=== PATIENT | female | born 1980 | race African-American/Black ===

== ENCOUNTER 2016-07-06 16:25 | Emergency (ER) | payer BC, MEDICAID ==
[~2016-07-06] VITALS: Ht 160 cm; Wt 66.0 kg
[2016-07-06 16:57] VITALS: BP 105/65
[2016-07-06] MEDS ORDERED: ACETAMINOPHEN 325MG TABLET PO ONE (20:00)
== END 2016-07-06 20:20 | disposition home or self-care (01) ==
LOC: ER 18:35
DX: H11.32 Conjunctival hemorrhage, left eye (principal); F12.10 Cannabis abuse, uncomplicated; Z88.0 Allergy status to penicillin; Z88.6 Allergy status to analgesic agent
CPT/HCPCS: 99282

== ENCOUNTER 2018-02-09 09:23 | Emergency (ER) | payer BC, MEDICAID ==
[~2018-02-09] VITALS: Ht 162.6 cm; Wt 68.0 kg
[2018-02-09] MEDS ORDERED: ONDANSETRON HCL 4MG/2ML INJ IV STA (09:38)
[2018-02-09] MEDS ORDERED: FAMOTIDINE 20MG/2ML VIAL IV STA (09:38)
[2018-02-09] MEDS ORDERED: SODIUM CHLORIDE 0.9% 1,000 ML IV ONE (09:38)
[2018-02-09 10:05] LABS: HEMATOCRIT. 37.3 % (36.0-48.0); HEMOGLOBIN. 12.8 g/dL (12.0-16.0); MEAN CORPUSCULAR VOLUME 92.9 fL (81.0-99.0); MEAN PLATELET VOLUME 9.5 fl (7.4-10.4); PLATELET 214 x1000/uL (130-400); RED BLOOD CELL COUNT 4.02 mill/uL (4.2-5.4); RED CELL DISTRIBUTION WIDTH 12.8 % (11.6-14.6)
[2018-02-09 10:13] LABS: INR 1.1; PROTHROMBIN TIME 10.8 sec (9.1-11.1)
[2018-02-09 10:17] LABS: HCG SCREEN NEGATIVE
[2018-02-09 10:23] LABS: PLATELET ESTIMATE NORMAL
[2018-02-09 10:34] LABS: CHLORIDE 106 mEq/L (98-107)
[2018-02-09 10:50] LABS: CLARITY URINE CLEAR (CLEAR); COLOR URINE YELLOW (YELLOW); KETONES URINE 1+ (NEGATIVE); LEUKOCYTE ESTERASE URINE NEGATIVE (NEGATIVE); NITRITE URINE NEGATIVE (NEGATIVE); OCCULT BLOOD URINE NEGATIVE (NEGATIVE); PH URINE 5.5 (4.5-8.0); PROTEIN URINE NEGATIVE (NEGATIVE); UROBILINOGEN URINE 0.2 E.U./dL (0.2-1.0)
[2018-02-09 10:52] VITALS: BP 114/84
== END 2018-02-09 11:35 | disposition home or self-care (01) ==
LOC: ER 10:26
DX: R10.13 Epigastric pain (principal); R03.0 Elevated blood-pressure reading, without diagnosis of hypertension
CPT/HCPCS: 36415; 76705; 80053; 81003; 81025; 83690; 84703; 85025; 85610; 96374; 96375; 99285; J2405; J3490; J7030

== ENCOUNTER 2018-05-28 14:05 | Emergency (ER) | payer MEDICAID, OTHER ==
[~2018-05-28] VITALS: Ht 162.6 cm; Wt 72.0 kg
[2018-05-28] MEDS ORDERED: METHOCARBAMOL 500MG TABLET PO ONE (16:15)
[2018-05-28] MEDS ORDERED: TRAMADOL 50MG TABLET PO ONE (16:15)
[2018-05-28 16:38] VITALS: BP 110/60
== END 2018-05-28 16:40 | disposition home or self-care (01) ==
LOC: ER 14:05
DX: S16.1XXA Strain of muscle, fascia and tendon at neck level, initial encounter (principal); R51 Headache; F12.10 Cannabis abuse, uncomplicated; Z88.0 Allergy status to penicillin; Z88.1 Allergy status to other antibiotic agents; Z88.6 Allergy status to analgesic agent; V49.49XA Driver injured in collision with other motor vehicles in traffic accident, initial encounter; Y93.89 Activity, other specified; Y92.89 Other specified places as the place of occurrence of the external cause; Y99.8 Other external cause status
CPT/HCPCS: 99283

== ENCOUNTER 2021-09-17 22:00 | Emergency (ER) | payer MEDICAID, OTHER ==
[~2021-09-17] VITALS: Ht 162.6 cm; Wt 74.4 kg
[2021-09-17 22:37] LABS: CLARITY URINE CLOUDY (CLEAR); COLOR URINE YELLOW (YELLOW); KETONES URINE TRACE (NEGATIVE); LEUKOCYTE ESTERASE URINE TRACE (NEGATIVE); NITRITE URINE NEGATIVE (NEGATIVE); OCCULT BLOOD URINE NEGATIVE (NEGATIVE); PH URINE 7.5 (4.5-8.0); PROTEIN URINE 1+ (NEGATIVE)
[2021-09-17] MEDS ORDERED: ACETAMINOPHEN 325MG TABLET PO ONE (23:15)
[2021-09-17 23:35] LABS: BASOPHILS % 0.7 % (0.0-2.0); EOSINOPHILS % 1.4 % (0.0-5.0); HEMATOCRIT. 32.7 % (36.0-48.0); HEMOGLOBIN. 11.3 g/dL (12.0-16.0); LYMPHOCYTES % 25.1 % (20.0-50.0); MEAN CORPUSCULAR HEMOGLOBIN 30.3 pg (28.0-32.0); MEAN CORPUSCULAR VOLUME 87.9 fL (81.0-99.0); MEAN PLATELET VOLUME 9.8 fl (7.4-10.4); NEUTROPHILS % 64.8 % (40.0-76.0); PLATELET 177 x1000/uL (130-400); RED BLOOD CELL COUNT 3.72 mill/uL (4.2-5.4); RED CELL DISTRIBUTION WIDTH 19.3 % (11.6-14.6)
[2021-09-17 23:43] LABS: CHLORIDE 109 mEq/L (98-107)
[2021-09-18 00:06] LABS: B-HCG QUANTITATIVE 107523 mIU/mL (<3)
[2021-09-18 06:05] VITALS: BP 135/82
== END 2021-09-18 06:07 | disposition home or self-care (01) ==
LOC: ER 22:00
DX: O26.891 Other specified pregnancy related conditions, first trimester (principal); Z3A.12 12 weeks gestation of pregnancy; F12.10 Cannabis abuse, uncomplicated; Z88.0 Allergy status to penicillin
CPT/HCPCS: 36415; 76801; 76857; 80053; 81003; 81025; 84702; 85025; 86850; 86900; 99285

== ENCOUNTER 2021-12-09 00:52 | Observation (INO) | payer MEDICAID ==
[~2021-12-09] VITALS: Ht 162.6 cm; Wt 74.4 kg
[2021-12-09 02:07] LABS: CLARITY URINE CLEAR (CLEAR); COLOR URINE YELLOW (YELLOW); KETONES URINE 1+ (NEGATIVE); LEUKOCYTE ESTERASE URINE NEGATIVE (NEGATIVE); NITRITE URINE NEGATIVE (NEGATIVE); OCCULT BLOOD URINE NEGATIVE (NEGATIVE); PROTEIN URINE NEGATIVE (NEGATIVE); SPECIFIC GRAVITY URINE 1.022 (1.005-1.030); UROBILINOGEN URINE 0.2 E.U./dL (0.2-1.0)
[2021-12-09] MEDS ORDERED: FERR325T6 PO (02:32)
[2021-12-09] MEDS ORDERED: PREN1TAB78 PO (02:32)
[2021-12-09] MEDS ORDERED: ACETAMINOPHEN 325MG TABLET PO PRN (02:45)
== END 2021-12-09 03:02 | disposition home or self-care (01) ==
LOC: L&D 00:52 → 8 EST LDRP 01:32
PROVIDERS: ADMIT Obstetrics & Gynecology; ATTEND Obstetrics & Gynecology
DX: O62.9 Abnormality of forces of labor, unspecified (principal); O26.893 Other specified pregnancy related conditions, third trimester; R10.30 Lower abdominal pain, unspecified; N89.8 Other specified noninflammatory disorders of vagina; O34.13 Maternal care for benign tumor of corpus uteri, third trimester; Z3A.36 36 weeks gestation of pregnancy
CPT/HCPCS: 59025; 76805; 81003; G0378; 99281

== ENCOUNTER 2023-08-29 15:23 | Emergency (ER) | payer MEDICAID, OTHER ==
[~2023-08-29] VITALS: Ht 160 cm; Wt 72.6 kg
[~2023-08-29 15:23] MED LIST: FERR325T6 PO; PREN1TAB78 PO
[2023-08-29 15:49] VITALS: BP 88/55; PULSE 82; RESP 16; TEMP 98.7; O2SAT 99
[2023-08-29 16:37] LABS: BASOPHILS % 0.4 % (0.0-2.0); EOSINOPHILS % 0.8 % (0.0-5.0); HEMATOCRIT. 36.9 % (36.0-48.0); HEMOGLOBIN. 12.8 g/dL (12.0-16.0); LYMPHOCYTES % 20.9 % (20.0-50.0); MEAN CORPUSCULAR HEMOGLOBIN 33.3 pg (28.0-32.0); MEAN CORPUSCULAR HGB CONC 34.7 g/dL (31.0-37.0); MONOCYTES % 7.6 % (2.0-8.0); NEUTROPHILS % 70.3 % (40.0-76.0); PLATELET 190 x1000/uL (130-400); RED BLOOD CELL COUNT 3.85 mill/uL (4.2-5.4); RED CELL DISTRIBUTION WIDTH 13.2 % (11.6-14.6); WHITE BLOOD COUNT 6.5 x1000/uL (4.5-11.0)
[2023-08-29 16:40] LABS: CHLORIDE 106 mEq/L (98-107); POTASSIUM 4.5 mEq/L (3.5-5.1); SODIUM 138 mEq/L (136-145)
[2023-08-29 16:41] LABS: CARBON DIOXIDE 26 mEq/L (21-32)
[2023-08-29 16:41] LABS: CLARITY URINE CLEAR (CLEAR); COLOR URINE YELLOW (YELLOW); GLUCOSE URINE NEGATIVE (NEGATIVE); KETONES URINE NEGATIVE (NEGATIVE); LEUKOCYTE ESTERASE URINE NEGATIVE (NEGATIVE); NITRITE URINE NEGATIVE (NEGATIVE); OCCULT BLOOD URINE NEGATIVE (NEGATIVE); PH URINE 7.5 (4.5-8.0); PROTEIN URINE NEGATIVE (NEGATIVE); SPECIFIC GRAVITY URINE 1.025 (1.005-1.030); UROBILINOGEN URINE 0.2 E.U./dL (0.2-1.0)
[2023-08-29 16:42] LABS: CALCIUM 9.9 mg/dL (8.7-10.4)
[2023-08-29 16:46] LABS: CREATININE 0.6 mg/dL (0.6-1.0); GLUCOSE 78 mg/dL (70-105); UREA NITROGEN BLOOD 9 mg/dL (9-23)
[2023-08-29 17:03] LABS: B-HCG QUANTITATIVE 67782 mIU/mL (<3)
== END 2023-08-29 18:15 | disposition home or self-care (01) ==
LOC: ER 17:22
DX: O34.12 Maternal care for benign tumor of corpus uteri, second trimester (principal); O26.892 Other specified pregnancy related conditions, second trimester; R10.9 Unspecified abdominal pain; Z88.6 Allergy status to analgesic agent; Z88.0 Allergy status to penicillin; Z3A.15 15 weeks gestation of pregnancy
CPT/HCPCS: 36415; 76805; 80048; 81003; 81025; 84702; 85025; 86850; 86900; 99284

== ENCOUNTER 2024-09-04 10:00 | Emergency (ER) | payer OTHER ==
[~2024-09-04] VITALS: Ht 162.6 cm; Wt 77.0 kg
[2024-09-04 10:03] VITALS: O2SAT 99
[2024-09-04 10:17] VITALS: BP 117/49; PULSE 82; RESP 14; TEMP 36.7; O2SAT 100
[2024-09-04 11:28] LABS: BASOPHILS % 0.5 % (0.0-2.0); EOSINOPHILS % 1.4 % (0.0-5.0); HEMATOCRIT. 39.3 % (36.0-48.0); HEMOGLOBIN. 13.4 g/dL (12.0-16.0); LYMPHOCYTES % 29.8 % (20.0-50.0); MEAN CORPUSCULAR HEMOGLOBIN 32.2 pg (28.0-32.0); MEAN CORPUSCULAR HGB CONC 34.2 g/dL (31.0-37.0); MEAN CORPUSCULAR VOLUME 94.4 fL (81.0-99.0); MEAN PLATELET VOLUME 9.8 fl (7.4-10.4); MONOCYTES % 8.6 % (2.0-8.0); NEUTROPHILS % 59.7 % (40.0-76.0); PLATELET 230 x1000/uL (130-400); RED BLOOD CELL COUNT 4.17 mill/uL (4.2-5.4); RED CELL DISTRIBUTION WIDTH 12.5 % (11.6-14.6); WHITE BLOOD COUNT 4.3 x1000/uL (4.5-11.0)
[2024-09-04 11:39] LABS: CHLORIDE 108 mEq/L (98-107); POTASSIUM 5.2 mEq/L (3.5-5.1); SODIUM 142 mEq/L (136-145)
[2024-09-04 11:41] LABS: CALCIUM 9.8 mg/dL (8.7-10.4); CARBON DIOXIDE 29 mEq/L (21-32)
[2024-09-04 11:46] LABS: CREATININE 0.9 mg/dL (0.6-1.0); GLUCOSE 101 mg/dL (70-105); UREA NITROGEN BLOOD 11 mg/dL (9-23)
[2024-09-04 11:47] LABS: HCG SCREEN NEGATIVE
[2024-09-04 11:48] LABS: ALANINE AMINOTRANSFERASE 15 IU/L (10-49); ALBUMIN 4.3 g/dL (3.2-4.8); ASPARTATE AMINOTRANSFERASE 21 IU/L (<34); BILIRUBIN DIRECT 0.1 mg/dL (<=3.0); BILIRUBIN TOTAL 0.6 mg/dL (0.1-1.0); PROTEIN TOTAL 7.5 g/dL (6.0-8.3)
[2024-09-04 11:57] LABS: CLARITY URINE CLEAR (CLEAR); COLOR URINE YELLOW (YELLOW); GLUCOSE URINE NEGATIVE (NEGATIVE); KETONES URINE NEGATIVE (NEGATIVE); LEUKOCYTE ESTERASE URINE NEGATIVE (NEGATIVE); NITRITE URINE NEGATIVE (NEGATIVE); OCCULT BLOOD URINE NEGATIVE (NEGATIVE); PROTEIN URINE NEGATIVE (NEGATIVE); SPECIFIC GRAVITY URINE 1.027 (1.005-1.030); UROBILINOGEN URINE 0.2 E.U./dL (0.2-1.0)
[2024-09-04 12:06] LABS: PROTHROMBIN TIME 10.5 sec (9.6-11.0)
== END 2024-09-04 13:15 | disposition left against medical advice (07) ==
LOC: ER 10:00
DX: R10.9 Unspecified abdominal pain (principal); F12.10 Cannabis abuse, uncomplicated; Z88.0 Allergy status to penicillin; Z88.6 Allergy status to analgesic agent; Z86.018 Personal history of other benign neoplasm
CPT/HCPCS: 36415; 73130; 76830; 76856; 80048; 80076; 81003; 81025; 84703; 85025; 99284